=== PATIENT | female | born 1960 | race Caucasian/White ===

== ENCOUNTER 2018-04-09 06:25 | Day surgery (SDC) | payer BC ==
[~2018-04-09] VITALS: Ht 160 cm; Wt 77.1 kg
[~2018-04-09 06:25] MED LIST: PREMARIN0.625 MG PO; PROAIR HFA8.5 GM INH; SARAFEM10 MG PO
--- NOTE | 2018-04-09 07:53 | NUR ---
04/09/18 Beckie Wang 5662 PT ARRIVED TO PACU DROWSY, RESP EVEN AND UNLABORED. PT ENCOURAGED TO PASS GAS/AIR. PT BACK TO SLEEP SNORING NOTED. ON 3L VIA NC.
--- NOTE | 2018-04-10 06:57 | OR ---
[facility] [address], [place] [address] Signed DATE OF OPERATION: 04/09/2018 SURGEON: Sania Willett MD PREOPERATIVE DIAGNOSIS: Screening. POSTOPERATIVE DIAGNOSES: 1. 4 mm polyp at 4 cm. 2. Minimal sigmoid diverticulosis. 3. Cifngyk-wx-wsmupmce internal hemorrhoids. PROCEDURE: Colonoscopy with hot biopsy. ESTIMATED BLOOD LOSS: None. INDICATIONS: Theodora is a 57-year-old female, who comes for her colonoscopy. I have already helped her . 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 They have changed their food habits and she lost 33 pounds and her has lost even more. She is very proud of that and we congratulated her for that. She comes now to schedule her colonoscopy. She told me she has no lower GI complaints. There is no family history of colon cancer or polyps. In the office, I gave her a pamphlet on colonoscopy and we looked at that together along with the risks including, but not limited to gas bloating, crampy abdominal pain, bleeding, perforation, requiring surgery, and missed diagnosis. We also discussed the need for IV conscious sedation. She had expressed understanding and wish to proceed. PROCEDURE NOTE: Theodora was taken into our endoscopy suite and placed in the left lateral decubitus position. She was given divided doses of 5 mg of Versed and 150 mcg of fentanyl. A digital rectal exam was performed and this was unremarkable. The adult colonoscope was introduced and advanced all around into the cecum under direct visualization of camera without difficulty. Her prep was quite good. The scope was then slowly withdrawn. Out in the middle of the colon, we did notice a small lipoma. We took a picture of that for documentation. Also she has cdsibkn-ms-zhubeohq sigmoid diverticulosis. They were minimal to moderate in size, minimal to moderate in number, and scattered about. In the rectum, she had just a tiny 4 mm polyp, which we removed with hot biopsy forceps. Upon Electronically Signed By: SANIA WILLETT MD 04/09/18 0842 Electronically Signed By: SANIA WILLETT MD 04/10/18 0826 PATIENT NAME: THEODORA DIAZ OPERATIVE REPORT DATE OF : 58 REPORT #: [id number] PHYSICIAN: SANIA WILLETT MD PCP: ALEXANDRA MCGARRY PAC REPORT IS CONFIDENTIAL AND NOT TO BE RELEASED WITHOUT AUTHORIZATION [facility] [address], [place] [address] Signed retroflexion of scope, we could also see minimal to moderate internal hemorrhoids. After this, the gas was suctioned out and the colonoscope removed. Theodora tolerated the procedure quite well. 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 I suspect this will be a hyperplastic polyp and if that is true she can return in 10 years. Sania Willett MD ALB/DIANEL /[id number] cc: MD Alexandra Ibrahim PA-C Copies: SANIA WILLETT MD, ERIKA PAC ~ Electronically Signed By: SANIA WILLETT MD 04/09/18 0842 Electronically Signed By: SANIA WILLETT MD 04/10/18 0826 PATIENT NAME: THEODORA DIAZ OPERATIVE REPORT DATE OF : 58 REPORT #: [id number] PHYSICIAN: SANIA WILLETT MD PCP: ALEXANDRA MCGARRY REPORT IS CONFIDENTIAL AND NOT TO BE RELEASED WITHOUT AUTHORIZATION
== END 2018-04-09 08:15 | disposition home or self-care (01) ==
LOC: DS 06:25 → OPS 06:25 → DS 06:45 → OPS 06:45
PROVIDERS: Colon & Rectal Surgery
PROC: 0DBQ0ZX Excision of Anus, Open Approach, Diagnostic (ICD-10-PCS; principal; 2018-04-09 06:45)
DX: Z12.11 Encounter for screening for malignant neoplasm of colon (principal); K62.1 Rectal polyp; K57.30 Diverticulosis of large intestine without perforation or abscess without bleeding; K64.8 Other hemorrhoids; D17.5 Benign lipomatous neoplasm of intra-abdominal organs; Z79.899 Other long term (current) drug therapy
CPT/HCPCS: 99153; G0500; J2250; J3010; J7120